=== PATIENT | female | born 1980 | race Two or more races ===

== ENCOUNTER 2024-10-22 06:48 | Day surgery (SDC) | payer OTHER ==
[2024-10-17 13:51] VITALS: BP 140/97
[~2024-10-22] VITALS: Ht 162.6 cm; Wt 86.6 kg
[2024-10-22] MEDS ORDERED: DEXAMETHASONE SODIUM PHOSPHATE 4 MG/ML VIAL IV ONE (12:30)
[2024-10-22] MEDS ORDERED: MEPERIDINE HCL 25 MG/ML AMPUL IV ONE (13:50)
[2024-10-22] MEDS ORDERED: hydrALAZINE HCL 20 MG VIAL IV ONE (14:30)
== END 2024-10-22 16:30 | disposition home or self-care (01) ==
LOC: CIR.AMB 06:48
PROVIDERS: ATTEND Surgery
DX: E04.1 Nontoxic single thyroid nodule (principal); E06.3 Autoimmune thyroiditis